=== PATIENT | male | born 1995 | race Caucasian/White ===

== ENCOUNTER 2023-07-15 09:47 | Emergency (ER) | payer MEDICAID ==
[~2023-07-15] VITALS: Ht 167.6 cm; Wt 77.0 kg
[2023-07-15 10:08] VITALS: TEMP 98.6; O2SAT 98
[2023-07-15] MEDS ORDERED: KETOROLAC 60MG/2ML VIAL IM NR (11:15)
[2023-07-15] MEDS ORDERED: LIDOCAINE 5% PATCH TOP NR (11:15)
[2023-07-15] MEDS ORDERED: TETANUS, DIPHTHERIA, PERTUSSIS VAC/PF 0.5ML (>10YR OLD) IM ONE (11:30)
[2023-07-15 11:43] VITALS: BP 126/82; PULSE 79; RESP 16
[2023-07-18 15:06] LABS: HIV SCREEN 4G Non Reactive (Non Reactive)
== END 2023-07-15 11:58 | disposition home or self-care (01) ==
LOC: ER 10:56
DX: M79.645 Pain in left finger(s) (principal); S20.212A Contusion of left front wall of thorax, initial encounter; R07.89 Other chest pain; Y04.0XXA Assault by unarmed brawl or fight, initial encounter; Y93.89 Activity, other specified; Y92.89 Other specified places as the place of occurrence of the external cause; Y99.8 Other external cause status
CPT/HCPCS: 87389; 71045; 73120; 90715; 90471; 96372; 99284; J1885; Z7610